=== PATIENT | male | born 1980 | race Caucasian/White ===

== ENCOUNTER → 2019-01-08 | Emergency (ER) | payer OTHER ==
[~2019-01-08] VITALS: Ht 170.2 cm; Wt 63.5 kg
== END | disposition home or self-care (01) ==
LOC: ER 09:50
DX: K52.9 Noninfective gastroenteritis and colitis, unspecified (principal)

== ENCOUNTER 2020-05-07 02:03 | Emergency (ER) | payer OTHER ==
[~2020-05-07] VITALS: Ht 170.2 cm; Wt 61.2 kg
[2020-05-07] MEDS ORDERED: ZOFRAN8 MG PO (08:39)
[2020-05-07] MEDS ORDERED: PEPCID AC20 MG PO (08:39)
== END 2020-05-07 08:57 | disposition home or self-care (01) ==
LOC: ER 02:03
DX: K52.9 Noninfective gastroenteritis and colitis, unspecified (principal)